=== PATIENT | male | born 1980 | race Caucasian/White ===

== ENCOUNTER 2020-02-03 11:50 | Emergency (ER) | payer SELFPAY ==
[2020-02-03] MEDS ORDERED: BUPIVACAINE HCL 0.5 % INJ/PF 30 ML SDV INJ ONE (12:35)
[2020-02-03] MEDS ORDERED: DIPH/PERTUSS(ACELL)/TETANUS VAC/PF 0.5 ML SYR (>=10YO) IM ONE (12:36)
--- NOTE | 2020-02-03 12:36 | ER Document Report ---
HPI - HPI Patient complains to provider of: Finger laceration Time Seen by Provider: 02/03/20 12:31 Onset: Just prior to arrival Onset/Duration: Sudden Quality of pain: Achy Pain Level: 2 Context: Patient was using a knife and accidentally slipped cutting across his left second finger. Patient is right-hand dominant. No active bleeding at this time. Exacerbated by: Movement Relieved by: Denies Similar symptoms previously: No Recently seen / treated by doctor: No - ROS ROS below otherwise negative: Yes Systems Reviewed and Negative: Yes All other systems reviewed and negative - NEURO Neurology: DENIES: Weakness - MUSCULOSKELETAL Musculoskeletal: REPORTS: Extremity pain - left index finger - DERM Skin Color: Normal Skin Problems: Laceration Past Medical History - General Information source: Patient - Social History Smoking Status: Current Every Day Smoker Chew tobacco use (# tins/day): No Frequency of alcohol use: None Drug Abuse: None Occupation: [employer] Lives with: Family Family History: Reviewed & Not Pertinent Patient has homicidal ideation: No - Medical History Medical History: Negative Surgical Hx: Negative - Immunizations Hx Diphtheria, Pertussis, Tetanus Vaccination: Yes Vertical Provider Document - CONSTITUTIONAL Agree With Documented VS: Yes Exam Limitations: No Limitations General Appearance: WD/WN, No Apparent Distress - HEENT HEENT: Atraumatic, Normocephalic - NECK Neck: Normal Inspection - RESPIRATORY Respiratory: No Respiratory Distress - CARDIOVASCULAR Pulses: Normal: Radial - MUSCULOSKELETAL/EXTREMETIES Musculoskeletal/Extremeties: MAEW, FROM - NEURO Level of Consciousness: Awake, Alert Motor/Sensory: No Motor Deficit - DERM Integumentary: Warm, Dry, Laceration - 3 cm laceration to dorsal aspect of left second finger, no tendon deficit appreciated Course - Vital Signs Vital signs: Temp Pulse Resp BP Pulse Ox 98.5 F 102 H 18 156/87 H 98 02/03/20 12:29 02/03/20 11:55 02/03/20 11:55 02/03/20 11:55 02/03/20 11:55 Procedures - Laceration/Wound Repair Left Finger 2nd digit Wound length (cm): 3 Wound's Depth, Shape: Linear Laceration pre-procedure: Shur-Clens applied Anesthetic type: 0.5% Bupivacaine Wound explored: Clean Wound Repaired With: Sutures Suture Size/Type: 5:0, Nylon Number of Sutures: 6 Layer Closure?: No Post-procedure wound care: Sterile dressing applied Post-procedure NV exam normal: Yes Complications: No Hands back picture: 1 - lac Discharge - Discharge Clinical Impression: Left second finger laceration Condition: Stable Disposition: HOME, SELF-CARE Instructions: Laceration Care ([facility]), Tetanus Immunization Given ([facility]) Additional Instructions: Return immediately for any new or worsening symptoms: Fever, redness, purulent drainage, or any concerning symptoms Followup with your primary care provider, call tomorrow to make a followup appointment Suture removal in 10 days Referrals: DEANGELO TEJADA DO [ACTIVE STAFF] - Follow up as needed
[2020-02-03 14:19] VITALS: BP 116/69
== END 2020-02-03 14:17 | disposition home or self-care (01) ==
LOC: ER 11:50
DX: S61.211A Laceration without foreign body of left index finger without damage to nail, initial encounter (principal); W26.0XXA Contact with knife, initial encounter; F17.200 Nicotine dependence, unspecified, uncomplicated; Z23 Encounter for immunization
CPT/HCPCS: 90471; 90715; 99283

== ENCOUNTER 2020-04-26 12:58 | Emergency (ER) | payer SELFPAY ==
[2020-04-26 13:04] VITALS: BP 137/72
--- NOTE | 2020-04-26 13:43 | ER Document Report ---
HPI - HPI Patient complains to provider of: Jaw swelling Time Seen by Provider: 04/26/20 13:35 Pain Level: 3 Notes: 39-year-old male to the emergency department with complaints of right lower jaw swelling that began several days ago and has persisted. He states that he has jaw pain with this. He denies any fevers or chills. Denies any difficulty opening mouth. He denies any voice change, shortness of breath. He states that he has a lot of bad teeth and that he needs to be seen by dentist. He has not seen a dentist in several years. He does smoke. - ROS Systems Reviewed and Negative: Yes All other systems reviewed and negative - CONSTITUTIONAL Constitutional: DENIES: Fever, Chills - EENT EENT: DENIES: Sore Throat, Ear Pain, Congestion Notes: Jaw swelling, see HPI - NEURO Neurology: DENIES: Headache - CARDIOVASCULAR Cardiovascular: DENIES: Chest pain - RESPIRATORY Respiratory: DENIES: Trouble Breathing, Coughing - GASTROINTESTINAL Gastrointestinal: DENIES: Abdominal Pain, Nausea, Patient vomiting, Diarrhea - MUSCULOSKELETAL Musculoskeletal: DENIES: Neck Pain - DERM Skin Color: Normal Skin Problems: None Past Medical History - General Information source: Patient - Social History Smoking Status: Current Every Day Smoker Chew tobacco use (# tins/day): No Frequency of alcohol use: None Drug Abuse: None Family History: Reviewed & Not Pertinent - Immunizations Hx Diphtheria, Pertussis, Tetanus Vaccination: Yes Vertical Provider Document - CONSTITUTIONAL Agree With Documented VS: Yes Exam Limitations: No Limitations General Appearance: WD/WN - HEENT HEENT: Atraumatic Notes: There is right lower jaw swelling. Severe dental hygiene and caries throughout all teeth. There is mild tenderness to palpation to all lower right molars. There is tenderness to palpation of the gum below these teeth. There is a dental abscess. It is not fluctuant or actively draining. There is no Andres's angina. There is no drooling. There is no voice change. Airway is grossly patent. - NECK Neck: Normal Inspection, Supple - RESPIRATORY Respiratory: Breath Sounds Normal, No Respiratory Distress. negative: Rales, Rhonchi, Wheezing - CARDIOVASCULAR Cardiovascular: Regular Rate, Regular Rhythm, No Murmur - GI/ABDOMEN Gastrointestinal: Abdomen Soft, Abdomen Non-Tender - BACK Back: Normal Inspection - MUSCULOSKELETAL/EXTREMETIES Musculoskeletal/Extremeties: NANCY POLO - NEURO Level of Consciousness: Awake, Alert, Appropriate Motor/Sensory: No Motor Deficit, No Sensory Deficit - DERM Integumentary: Warm, Dry Course - Re-evaluation Re-evalutation: Impression: Dental abscess, dental caries, jaw pain, jaw swelling. Offered I&D of a dental abscess but patient declined. He states he would like antibiotics. He is in Suboxone clinic so we will write for Motrin, Peridex, antibiotics. He is encouraged to return if any symptoms worsening such as worsening facial swelling, drooling, fevers, increasing pain or any other concerns. He is encouraged to follow-up with dentist without fail. He agrees with plan. - Vital Signs Vital signs: Temp Pulse Resp BP Pulse Ox 98.3 F 75 16 137/72 H 98 04/26/20 13:02 04/26/20 13:02 04/26/20 13:02 04/26/20 13:02 04/26/20 13:02 Discharge - Discharge Clinical Impression: Dental abscess, Jaw swelling, Jaw pain Condition: Stable Disposition: HOME, SELF-CARE Instructions: Dental Infection or Abscess ([facility]) Additional Instructions: Complete all antibiotics. Follow-up with your dentist without fail in 10 days. Return if worsening swelling, drooling, fevers, inability to open mouth or any o ther concerning symptoms. Prescriptions: Clindamycin HCl 300 mg PO TID #30 capsule Ibuprofen [Motrin 800 mg Tablet] 800 mg PO Q8H PRN #30 tab PRN Reason: Chlorhexidine Gluconate [Peridex] 15 ml MM BID #200 ml Referrals: [facility] [Provider Group] - Follow up in 1 week
== END 2020-04-26 13:42 | disposition home or self-care (01) ==
LOC: ER 12:58
DX: K04.7 Periapical abscess without sinus (principal); K02.9 Dental caries, unspecified; F17.200 Nicotine dependence, unspecified, uncomplicated; Z79.899 Other long term (current) drug therapy
CPT/HCPCS: 99283